=== PATIENT | male | born 1945 | race Caucasian/White ===

== ENCOUNTER → 2024-05-03 | Outpatient (CLI) | payer OTHER, SELFPAY ==
--- NOTE | 2024-05-03 | XR_ITS ---
Examination: Retroperitoneal ultrasound, complete Technique: Multiple high resolution grayscale images of the retroperitoneum obtained, including kidneys and bladder. Exam date and time:May 03, 2024 1244 hours INDICATIONS: Diagnosis chronic kidney disease on laboratory examination several months ago FINDINGS: Right kidney 11.1 x 5.8 x 5.8 cm cortex 1.6 cm Left kidney 11.4 x 5.7 x 4.5 cm cortex 1.9 cm Moderate bilateral renal parenchymal scar formation Upper pole right renal cyst 36 mm lower pole renal cyst 68 mm mid pole left renal cyst 17 mm No hydronephrosis No bladder mass or bladder calculi Bladder prevoid volume 349 cc Prostate volume 30 cc no prostate nodules Incidental note solid mass para-aortic 5.1 x 5.0 x 5.0 cm IMPRESSION: Moderate bilateral renal parenchymal scar formation Solid mass para-aortic 5.1 x 5.0 x 5.0 cm, recommend CT scan abdomen pelvis post intravenous contrast follow-up
== END | disposition home or self-care (01) ==
PROVIDERS: PCP Family Medicine; Referring Provider Nurse Practitioner Family; Visit Provider Nurse Practitioner Family
DX: N28.89 Other specified disorders of kidney and ureter (principal)
CPT/HCPCS: 76770

== ENCOUNTER → 2024-05-17 | Outpatient (CLI) | payer OTHER, SELFPAY ==
[2024-05-17 11:31] LABS: Basophils # (Auto) 0.1 Thou/mm3 (0.0-0.2); Basophils % (Auto) 1 % (0-2.5); Eosinophils # (Auto) 0.6 Thou/mm3 (0.0-0.5); Eosinophils % (Auto) 7 % (0-10); Hematocrit 40.3 % (41.0-53.0); Hemoglobin 14.4 g/dL (13.5-16.0); Immature Granulocytes % (Auto) 0 % (0-0); Immature Granulocytes Auto 0.03 Thou/mm3 (0.00-0.00); Lymphocytes # (Auto) 2.3 Thou/mm3 (1.0-4.8); Lymphocytes % (Auto) 31 % (10-50); Mean Corpuscular HGB Conc 35.7 g/dl (31.0-37.0); Mean Corpuscular Hemoglobin 32.9 pg (25.0-35.0); Mean Corpuscular Volume 92 fL (80-100); Monocytes # (Auto) 0.9 Thou/mm3 (0.0-0.8); Monocytes % (Auto) 12 % (0-12); Neutrophils # (Auto) 3.7 Thou/mm3 (1.8-7.7); Neutrophils % (Auto) 49 % (37-80); Nucleated Red Blood Cell % 0 /100 WBC (0); Platelet Count 222 Thou/mm3 (140-440); RDW Standard Deviation 41.6 fL (35.1-43.9); Red Blood Count 4.38 Miln/mm3 (4.50-5.90); White Blood Count 7.6 Thou/mm3 (3.8-10.6)
[2024-05-17 11:51] LABS: Prostate Specific Antigen 1.19 ng/mL (0-4.00)
[2024-05-17 11:53] LABS: Glucose Estimated Average 108 mg/dL (80-131); Hemoglobin A1C 5.4 % Hgb (4.8-6.0)
[2024-05-17 11:59] LABS: Alanine Aminotransferase 31 U/L (10-49); Albumin, Serum 4.3 gm/dL (3.4-4.8); Albumin/Globulin Ratio 1.7 (1.2-2.2); Alkaline Phosphatase 94 U/L (46-116); Anion Gap 7 (7-16); Aspartate Amino Transferase 18 U/L (0-34); BUN/Creatinine Ratio 9 Ratio (12-20); Bilirubin,Total 0.6 mg/dL (0.3-1.2); Blood Urea Nitrogen 10 mg/dL (9-23); Calcium 9.8 mg/dL (8.3-10.6); Calcium (Corrected) 9.8 mg/dL (8.5-10.1); Carbon Dioxide 26.4 mMol/L (20.0-31.0); Cardiac Risk Estimate 2.5 RATIO (4.0-6.7); Chloride 100 mMol/L (98-107); Cholesterol 130 mg/dL (132-200); Creatinine (Component) 1.1 mg/dL (0.6-1.3); Globulin 2.5 gm/dL (2.3-3.5); Glucose 100 mg/dL (74-106); HDL Cholesterol 52 mg/dL (40-60); LDL Cholesterol,Calculated 49 mg/dL (0-130); Osmolality,Calculated 265 (275-295); Potassium 4.4 mMol/L (3.4-5.1); Sodium 133 mMol/L (136-145); Thyroid Stimulating Hormone 2.86 uIU/mL (0.55-4.78); Total Protein 6.8 gm/dL (5.7-8.2); Triglycerides 146 mg/dL (30-150); Uric Acid 5.3 mg/dL (3.7-9.2); eGFR > 60 See Note
[2024-05-17 12:20] LABS: Collection Type, Urine Clean Catch; RBC,Urine 0 /hpf (0-3); Squamous Epithelial Cell,Urine 0 /hpf (0-5)
[2024-05-17 12:49] LABS: Bilirubin,Urine Negative (Negative); Blood,Urine Negative (Negative); Clarity,Urine Clear (Clear/Hazy); Color,Urine Lt-Yellow (Lt Yel-Yel); Culture Indicated,Urine Not Indicated; Glucose, Urine Negative (Negative); Ketones,Urine Negative (Negative); Leukocyte Esterase,Urine Negative (Negative); Nitrite,Urine Negative (Negative); PH,Urine 6.5 (5.0-7.0); Protein,Urine Negative (Neg - Trace); Specific Gravity,Urine 1.007 (1.001-1.035); Urobilinogen,Urine Negative mg/dL (0.0-1.0); WBC,Urine < 1 /hpf (0-5)
== END | disposition home or self-care (01) ==
LOC: COPL 10:49
PROVIDERS: PCP Nurse Practitioner Family; Referring Provider Nurse Practitioner Family; Visit Provider Nurse Practitioner Family
DX: Z00.00 Encounter for general adult medical examination without abnormal findings (principal); M10.00 Idiopathic gout, unspecified site; I10 Essential (primary) hypertension; N40.0 Benign prostatic hyperplasia without lower urinary tract symptoms; I25.10 Atherosclerotic heart disease of native coronary artery without angina pectoris; E78.2 Mixed hyperlipidemia; R73.03 Prediabetes
CPT/HCPCS: 36415; 80053; 80061; 81001; 83036; 84153; 84443; 84550; 85025

== ENCOUNTER → 2024-05-25 | Outpatient (CLI) | payer OTHER, SELFPAY ==
--- NOTE | 2024-05-25 09:30 | XR_ITS ---
Examination: CT abdomen with intravenous contrast CT pelvis with intravenous contrast 2-D coronal reconstructions 2-D sagittal reconstructions Date and time of exam:May 14, 2024 at 0942 hrs. Indications: Solid mass anteriorly, renal sonogram May 03, 2024 CTDI: vol (mGy) : 5.2 DLP: (mGycm) 977 Technique: Multiple axial sections of the abdomen and pelvis have been obtained. 64 slice high-resolution scanner used. 3 mm axial sections have been obtained, post intravenous injection 60 cc [id number] 2-D sagittal, coronal reconstructions obtained. Low dose protocols were performed. One or more of the following dose reduction techniques were used; automated exposure control, adjustment of the mA and/or KV according to patient size, use of iterative reconstruction technique. Findings: No focal liver or splenic lesion No gallstones No hydronephrosis Bilateral renal cysts, the largest right kidney 6 cm Infrarenal abdominal aortic aneurysm AP dimension 4.8 cm, mediolateral dimension 5.0 cm No retroperitoneal or mesenteric mass Colonic diverticulosis No bowel obstruction No significant prostatomegaly Contracted urinary bladder Prominent osteopenia Impression: Infrarenal abdominal aortic aneurysm, AP dimension 4.8 cm mediolateral dimension 5.0 cm No mesenteric or retroperitoneal mass
== END | disposition home or self-care (01) ==
PROVIDERS: PCP Nurse Practitioner Family
DX: I71.43 Infrarenal abdominal aortic aneurysm, without rupture (principal)
CPT/HCPCS: 74177; A4649; Q9967

== ENCOUNTER → 2024-06-22 | Outpatient (CLI) | payer OTHER, SELFPAY ==
[2024-06-22 11:48] LABS: Basophils # (Auto) 0.1 Thou/mm3 (0.0-0.2); Basophils % (Auto) 1 % (0-2.5); Eosinophils # (Auto) 0.3 Thou/mm3 (0.0-0.5); Eosinophils % (Auto) 5 % (0-10); Hematocrit 40.5 % (41.0-53.0); Hemoglobin 14.4 g/dL (13.5-16.0); Immature Granulocytes % (Auto) 0 % (0-0); Immature Granulocytes Auto 0.03 Thou/mm3 (0.00-0.00); Lymphocytes % (Auto) 29 % (10-50); Mean Corpuscular HGB Conc 35.6 g/dl (31.0-37.0); Mean Corpuscular Hemoglobin 32.8 pg (25.0-35.0); Mean Corpuscular Volume 92 fL (80-100); Monocytes # (Auto) 0.8 Thou/mm3 (0.0-0.8); Monocytes % (Auto) 12 % (0-12); Neutrophils # (Auto) 3.6 Thou/mm3 (1.8-7.7); Neutrophils % (Auto) 53 % (37-80); Nucleated Red Blood Cell % 0 /100 WBC (0); Platelet Count 238 Thou/mm3 (140-440); RDW Standard Deviation 42.5 fL (35.1-43.9); Red Blood Count 4.39 Miln/mm3 (4.50-5.90); White Blood Count 6.8 Thou/mm3 (3.8-10.6)
[2024-06-22 12:21] LABS: Vitamin B12 185 pg/mL (211-911)
[2024-06-22 12:25] LABS: Iron 85 mcg/dL (65-175)
== END | disposition home or self-care (01) ==
LOC: COPL 10:11
PROVIDERS: PCP Family Medicine; Referring Provider Nurse Practitioner Family; Visit Provider Nurse Practitioner Family
DX: D64.9 Anemia, unspecified (principal)
CPT/HCPCS: 36415; 82607; 83540; 85025

== ENCOUNTER → 2024-06-23 | Outpatient (CLI) | payer OTHER, SELFPAY ==
[2024-06-27 06:49] LABS: Fecal Globin Result NOT DETECTED (NOT DETECTED)
== END | disposition home or self-care (01) ==
LOC: SLDO 13:23
PROVIDERS: Referring Provider Nurse Practitioner Family; Visit Provider Nurse Practitioner Family
DX: D64.9 Anemia, unspecified (principal)
CPT/HCPCS: 82274; G0328

== ENCOUNTER 2024-06-29 10:09 | Day surgery (SDC) | payer OTHER, SELFPAY ==
--- NOTE | 2024-06-28 13:35 | EKG_ITS ---
[facility] Test Date: 2024-06-28 Pat Name: MIGUEL GONZALES Department: Room: - Gender: Male Manager Telemetry: WON : 1945 Requested By: Damien Foreman Order Number: [id number] Reading MD: Damien Foreman Measurements Intervals [place] Rate: 73 P: 22 MI: 194 QRS: 31 QRSD: 113 T: 21 QT: 375 QTc: 415 Interpretive Statements SINUS RHYTHM WITH SINUS ARRHYTHMIA ANTEROLATERAL MYOCARDIAL INFARCTION , PROBABLY RECENT [40+ ms Q WAVE IN I/aVL/V3-V6] ACUTE PR No previous ECG available for comparison /[email or web address]/[id number]/[id number].[email or web address]
[2024-06-28 13:48] VITALS: BMI 34.4
[2024-06-28 16:27] LABS: Basophils # (Auto) 0.1 Thou/mm3 (0.0-0.2); Basophils % (Auto) 1 % (0-2.5); Eosinophils # (Auto) 0.3 Thou/mm3 (0.0-0.5); Eosinophils % (Auto) 4 % (0-10); Hematocrit 39.8 % (41.0-53.0); Hemoglobin 13.7 g/dL (13.5-16.0); Immature Granulocytes % (Auto) 0 % (0-0); Immature Granulocytes Auto 0.03 Thou/mm3 (0.00-0.00); Lymphocytes # (Auto) 2.1 Thou/mm3 (1.0-4.8); Lymphocytes % (Auto) 22 % (10-50); Mean Corpuscular HGB Conc 34.4 g/dl (31.0-37.0); Mean Corpuscular Hemoglobin 32.6 pg (25.0-35.0); Mean Corpuscular Volume 95 fL (80-100); Monocytes % (Auto) 10 % (0-12); Neutrophils # (Auto) 6.1 Thou/mm3 (1.8-7.7); Neutrophils % (Auto) 63 % (37-80); Nucleated Red Blood Cell % 0 /100 WBC (0); Platelet Count 263 Thou/mm3 (140-440); RDW Standard Deviation 43.1 fL (35.1-43.9); White Blood Count 9.6 Thou/mm3 (3.8-10.6)
[2024-06-28 16:35] LABS: Partial Thromboplastin Time 26.2 Seconds (22.0-36.0); Prothrombin Time 10.9 Seconds (9.0-12.2)
[2024-06-28 16:41] LABS: Anion Gap 6 (7-16); BUN/Creatinine Ratio 13 Ratio (12-20); Blood Urea Nitrogen 15 mg/dL (9-23); Calcium 9.4 mg/dL (8.3-10.6); Carbon Dioxide 27.4 mMol/L (20.0-31.0); Chloride 102 mMol/L (98-107); Creatinine (Component) 1.2 mg/dL (0.6-1.3); Estimated Creatinine Clearance 61.7 mL/min (>60); Glucose 104 mg/dL (74-106); Osmolality,Calculated 270 (275-295); Potassium 4.7 mMol/L (3.4-5.1); Sodium 135 mMol/L (136-145); eGFR > 60 See Note
[2024-06-29] VITALS (15 sets, daily range): BP systolic 111–151; BP diastolic 62–84; PULSE 42–65; RESP 12–19; TEMP 36.5–36.7; O2SAT 64–100; BMI 34.0
--- NOTE | 2024-06-29 14:00 | PC.NURSE ---
FEMORAL SHEATH (ARTERIAL ACCESSS) TO THE RIGHT GROIN AREA REMOVED ABOUT 1330. MANUAL PRESSURE APPLIED FOR ABOUT 25 MINUTES UNTIL HEMOSTASIS ACHIEVED.? PATIENT TOLERATED PROCEDURE WELL WITHOUT COMPLICATIONS. SURGICAL SITE ASYMPTOMATIC, NO ACTIVE BLEEDING, NO HEMATOMA NOTED ON RIGHT GROIN AREA. RIGHT FEMORAL PULSE NOTED WITH NO CHANGES IN STRENGHT AND QUALITY (weak upon palpation), RIGHT DORSALIS PEDIS PULSE NOTED WITH NO CHANGES STRENGHT AND QUALITY (normal upon palpation). DISTAL CAPPILARRY REFILL <3 SECONDS (Baseline, Right Toes). NO NOTED CHANGES IN COLOR OR TEMPERATURE ON RIGHT LOWER EXTREMITY. PATIENT DENIES GENERAL AND LOCALIZED PAIN. NO TINGLING OR NUMBNESS FELT TO RIGHT LOWER EXTREMITY. SURGICAL SITE COVERED WITH 4x4 GAUZE AND TAGADERM DRESSING. WILL CONTINUE TO MONITOR.
--- NOTE | 2024-06-29 14:41 | PC.NURSE ---
SURGICAL SITE TO RIGHT GROIN AREA REMAINS ASYMPTOMATIC, NO ACTIVE BLEEDING, NO HEMATOMA NOTED ON RIGHT GROIN AREA. RIGHT FEMORAL PULSE NOTED WITH NO CHANGES IN STRENGHT AND QUALITY UPON PALPATION (weak), RIGHT DORSALIS PEDIS PULSE NOTED WITH NO CHANGES STRENGHT AND QUALITY (normal upon palapation). DISTAL CAPPILARRY REFILL <3 SECONDS (Baseline, Right Toes). NO NOTED CHANGES IN COLOR OR TEMPERATURE ON RIGHT LOWER EXTREMITY. PATIENT DENIES GENERAL AND LOCALIZED PAIN. NO TINGLING OR NUMBNESS FELT TO RIGHT LOWER EXTREMITY. NO LOSS IN SENSATION TO RIGHT LOWER EXTEREMITY SURGICAL SITE COVERED WITH GAUZE AND TAGADERM DRESSING, WHICH REMAINS IN PLACE, DRY, AND INTACT.
--- NOTE | 2024-07-01 13:39 | ESOP_ITS ---
RE: MIGUEL GONZALES : 1945 DATE OF OPERATION: 06/29/2024 PROCEDURES PERFORMED: 1. Diagnostic left heart cardiac catheterization, selective coronary angiogram, left ventricular angiogram, vein bypass graft angiogram, CPT 35432. 2. Selective cannulation left subclavian and left internal mammary artery, GRIDER angiogram. 3. Abdominal angiogram. 4. Aortic angiogram and pelvic angiogram. 5. Conscious sedation for 30-minute duration. 6. Ultrasound-guided access of the right femoral artery. DIAGNOSES: Coronary artery disease, acute, recurrent; status post bypass graft surgery; saccular abdominal aortic aneurysm; abnormal nuclear stress test; preop clearance for surgery. HISTORY AND INDICATIONS: The patient is a 79-year-old male with history of CAD, bypass graft surgery more than 20 years, hypertension, hypercholesterolemia who recently found to have a 5-cm saccular aneurysm of the infrarenal abdominal aorta. Recommended to have complex intervention and endovascular repair at [facility]. Hence, cardiac clearance recommended. Nuclear scan showed inferior wall perfusion defect, hence coronary angiogram and bypass graft angiogram recommended prior to clearing the patient for surgery. PROCEDURE IN DETAIL: The patient was brought to the cardiac catheterization laboratory. He was given 2 mg Versed, conscious sedation. Right femoral artery was cannulated by ultrasound guidance. A 5-Moroccan sheath was introduced subsequently and using a glidewire, I able to pass the wire through the aneurysm sac and place in the aorta. Selective right coronary angiogram was performed using an AL1 diagnostic catheter. Left coronary angiogram was performed by a JL5 diagnostic catheter. A 6-Moroccan sheath was used for this JL5. Subsequently, a vein graft to the left circumflex artery and diagonal branches three branches cannulated by AL1 diagnostic catheter. A bypass graft angiogram was performed subsequently. Left internal mammary artery was cannulated by diagnostic catheter. Multiple views were obtained. Subsequently, a 6-Moroccan pigtail catheter was used to perform aortic root angiogram, also left ventricular angiogram as well as abdominal aortic angiogram, pelvic angiogram performed. Cardiac catheterization showed following findings: Left ventricular pressure 140, end- diastolic pressure is , aortic pressure 140/80, no gradient across the aortic valve. Left ventricular angiogram showed evidence of posterior basal hypokinesis, ejection fraction of 45% to 50%. Coronary angiogram showed following findings: Aortic root angiogram showed dilated aortic root. There is evidence of vein graft to the circumflex artery, but no vein graft to the right coronary artery. Abdominal aorta showed evidence of saccular 5-cm infrarenal abdominal aortic aneurysm. Right and left renal aorta are normal. Left common iliac artery appeared to be good size. Left common iliac artery showed mild to moderate plaque with some tortuosity and calcification. Pelvic angiogram showed evidence of common iliac arteries are patent. External iliac arteries are patent. Coronary angiography showed following findings: The right coronary artery is totally occluded in the mid segment and there is no graft to the right coronary artery, I could not see. , left main coronary artery is normal. Left anterior descending artery is occluded in the proximal segment after small branch and circumflex artery graft is occluded. There is a complex trifurcation vein graft supplying diagonal branch and ramus intermedius - two branches in the circumflex system with excellent widely patent vein graft. Left internal mammary artery to LAD is widely patent. SUMMARY OF FINDINGS: 1. Saccular abdominal aortic aneurysm, 5 cm, requires endovascular repair. 2. Right coronary artery severe stenosis, total occlusion. No graft. Possibly responsible for posterior basal hypokinesis and inferior wall perfusion defect. 3. Widely patent GRIDER to LAD and circumflex artery as well as a complex graft to circumflex artery diagonal branches. 4. Mild left ventricular dysfunction with an ejection fraction of 45% to 50%. RECOMMENDATIONS: Based on these findings, the patient appears at low risk for endovascular repair. Given cardiac clearance for the procedure. DT: 22:26:21 TT: 22:50:00 Ref: [id number] - TID: [id number]
== END 2024-06-29 18:40 | disposition home or self-care (01) ==
PROVIDERS: PCP Family Medicine; Referring Provider Internal Medicine Cardiovascular Disease; Visit Provider Internal Medicine Cardiovascular Disease
PROC: (CPT 93459; principal; 2024-06-29 11:30)
DX: I25.798 Atherosclerosis of other coronary artery bypass graft(s) with other forms of angina pectoris (principal); I71.40 Abdominal aortic aneurysm, without rupture, unspecified; I10 Essential (primary) hypertension; E78.00 Pure hypercholesterolemia, unspecified; Z01.810 Encounter for preprocedural cardiovascular examination; I25.82 Chronic total occlusion of coronary artery
CPT/HCPCS: 93459; 34701; 36415; 80048; 85025; 85610; 85730; 93005; 99152; 99153; A4649; C1769; C1894; J0171; J0461; J1643; J2250; J2310; J2371; J3010; J3490; Q9967

== ENCOUNTER → 2024-08-03 | Outpatient (CLI) | payer OTHER, SELFPAY ==
--- NOTE | 2024-08-03 12:55 | XR_ITS ---
Examination: Lumbar spine, 5 views Technique: Lumbar spine AP, lateral, coned lateral lower lumbar spine, bilateral obliques 5 views Exam date and time: August 02 1258 hours INDICATIONS: Low back pain this week findings: The iliac endoluminal stent Prominent diffuse facet arthropathy Lumbar fracture Advanced diffuse lumbar degenerative disease Prominent lumbar spondylosis IMPRESSION: Advanced diffuse lumbar degenerative disc disease with significant spinal stenosis
--- NOTE | 2024-08-03 12:55 | XR_ITS ---
Examination:Left hip AP, lateral, AP pelvis 3 views Technique: Hip AP lateral, AP pelvis, 3 views Exam date and time:August 03, 2024 1258 hours INDICATIONS: Left hip pain this week. FINDINGS: Moderate osteopenia Moderate narrowing right and left hip joints No hip or pelvic fracture IMPRESSION: Moderate narrowing hip joints.
== END | disposition home or self-care (01) ==
LOC: CDIM 12:35
PROVIDERS: PCP Family Medicine; Referring Provider Nurse Practitioner Family; Visit Provider Nurse Practitioner Family
DX: M51.360 Other intervertebral disc degeneration, lumbar region with discogenic back pain only (principal); M48.061 Spinal stenosis, lumbar region without neurogenic claudication; M25.852 Other specified joint disorders, left hip
CPT/HCPCS: 72110; 73503